=== PATIENT | male | born 1985 | race Hispanic/Latino ===

== ENCOUNTER 2019-07-05 23:05 | Emergency (ER) | payer OTHER ==
[~2019-07-05] VITALS: Ht 170.2 cm; Wt 99.8 kg
[2019-07-05] MEDS ORDERED: ALBUTEROL/IPRATROPIUM 3 ML NEB NEB ONE (23:30)
[2019-07-05] MEDS ORDERED: METHYLPREDNISOLONE SOD SUCC 125 MG/2ML VIAL IV ONE (23:45)
[2019-07-06 00:02] LABS: BASOPHILS % 0.5 % (0.0-1.0); EOSINOPHILS # (AUTO) 0.2 (0.0-0.4); EOSINOPHILS % 2.2 % (0.0-6.0); HEMATOCRIT 50.4 % (38.2-49.6); HEMOGLOBIN 17.4 g/dL (14.0-18.0); LYMPHOCYTES # (AUTO) 3.3 (1.0-3.2); LYMPHOCYTES % 41.5 % (18.0-39.1); MEAN CORPUSCULAR HEMOGLOBIN 31.4 pg (28-32); MEAN CORPUSCULAR HGB CONC 34.5 g/dL (31-35); MEAN CORPUSCULAR VOLUME 90.8 fL (81-99); MONOCYTES # (AUTO) 0.6 (0.2-0.8); MONOCYTES % 7.2 % (4.4-11.3); NEUTROPHILS # (AUTO) 3.9 (2.1-6.9); NEUTROPHILS % 48.4 % (38.7-80.0); PLATELET COUNT 309 x10e3/uL (140-360); RED BLOOD COUNT 5.55 x10e6/uL (4.3-5.7); RED CELL DISTRIBUTION WIDTH 11.9 % (11.7-14.4)
[2019-07-06 00:20] LABS: ALANINE AMINOTRANSFERASE 63 IU/L (0-55); ALBUMIN 4.2 g/dL (3.5-5.0); ALBUMIN/GLOBULIN RATIO 1.2 (0.8-2.0); ALKALINE PHOSPHATASE 110 IU/L (40-150); ANION GAP 16.6 mmol/L (8-16); BLOOD UREA NITROGEN 16 mg/dL (7-26); BUN/CREATININE RATIO 14 (6-25); CALCIUM 9.5 mg/dL (8.4-10.2); CARBON DIOXIDE 22 mmol/L (22-29); CHLORIDE 104 mmol/L (98-107); CREATINE KINASE 99 IU/L (30-200); CREATININE, SERUM 1.12 mg/dL (0.72-1.25); EST GLOMERULAR FILTRATION RATE > 60 ML/MIN (60-); GLUCOSE 93 mg/dL (74-118); POTASSIUM 3.6 mmol/L (3.5-5.1); SODIUM 139 mmol/L (136-145)
--- NOTE | 2019-07-06 02:03 | Diagnostic Imaging Report ---
EXAM: CT Chest WITH contrast 07/05/2019 11:26 PM INDICATION: ^hemoptysis ^[id number] ^0100 COMPARISON: None TECHNIQUE: Chest was scanned utilizing a multidetector helical scanner from the lung apex through the level of the adrenal glands without administration of IV contrast. Coronal and sagittal reformations were obtained. Routine protocol was performed. IV CONTRAST: 100 mL of Isovue-300 COMPLICATIONS: None RADIATION DOSE: Total DLP: 602.99 mGy*cm Estimated effective dose: (DLP x 0.014 x size factor) mSv CTDIvol has been reviewed. It is below the limits set by the Radiation Protocol Committee (RPC). FINDINGS: LINES/ TUBES: None. LUNGS AND AIRWAYS: The lungs are unremarkable. Airways are normal. PLEURA: The pleural spaces are clear. HEART AND MEDIASTINUM: The thyroid gland is normal. No mediastinal, hilar or axillary lymphadenopathy. The heart is normal in size.. There is no pericardial effusion. UPPER ABDOMEN: Unremarkable. BONES: The visualized bony thorax is within normal limits. SOFT TISSUES: Unremarkable. IMPRESSION: Normal chest CT. Signed by: Dr. Diony Amaya MD on 07/06/2019 1:59 AM
[2019-07-06 02:21] VITALS: BP 138/98
[2019-07-13] MEDS ORDERED: HYDROCHLOROTHIA25 MG PO ×2 (02:46→02:47)
== END 2019-07-06 02:45 | disposition home or self-care (01) ==
LOC: ER 23:05
DX: R05 Cough (principal); J20.9 Acute bronchitis, unspecified
CPT/HCPCS: 36415; 71260; 80053; 82550; 82553; 84484; 85025; 94640; 96374; 99284; J2930

== ENCOUNTER 2021-03-01 23:06 | Emergency (ER) | payer OTHER ==
[~2021-03-01] VITALS: Ht 170.2 cm; Wt 99.8 kg
[~2021-03-01 23:06] MED LIST: HYDROCHLOROTHIA25 MG PO
[2021-03-01] MEDS ORDERED: GUAIFENESIN 600MG/DEXTROMETHORPHAN 30MG TABSR PO STA (23:52)
[2021-03-01] MEDS ORDERED: KETOROLAC TROMETHAMINE 30 MG/ML VIAL IM STA (23:52)
[2021-03-02] MEDS ORDERED: ACETAMINOPHEN 325 MG TAB PO ONE
[2021-03-02] MEDS ORDERED: ONDANSETRON HCL 4 MG ORAL DISINTEGRATING TAB PO ONE
[2021-03-02] MEDS ORDERED: ONDANSETRON ODT4 MG PO (00:09)
== END 2021-03-02 01:05 | disposition home or self-care (01) ==
LOC: ER 23:52
DX: R50.9 Fever, unspecified (principal); R05 Cough; R11.2 Nausea with vomiting, unspecified; U07.1 COVID-19; I10 Essential (primary) hypertension; K21.9 Gastro-esophageal reflux disease without esophagitis
CPT/HCPCS: 99283; J1885; Q0162

== ENCOUNTER 2023-01-30 18:46 | Emergency (ER) | payer OTHER ==
[~2023-01-30] VITALS: Ht 170.2 cm; Wt 99.8 kg
[~2023-01-30 18:46] MED LIST changes: +ONDANSETRON ODT4 MG PO
[2023-01-30] MEDS ORDERED: SODIUM CHLORIDE 0.9% 1000ML 1,000 ML IV ONE (19:00)
[2023-01-30] MEDS ORDERED: CEFTRIAXONE 1 GM VIAL IV SCH (19:00)
[2023-01-30 19:03] LABS: BASOPHILS % 0.2 % (0.0-1.0); EOSINOPHILS # (AUTO) 0.1 (0.0-0.4); EOSINOPHILS % 1.1 % (0.0-6.0); HEMATOCRIT 46.8 % (38.2-49.6); HEMOGLOBIN 16.6 g/dL (14.0-18.0); LYMPHOCYTES # (AUTO) 1.4 (1.0-3.2); LYMPHOCYTES % 15.9 % (18.0-39.1); MEAN CORPUSCULAR HEMOGLOBIN 31.1 pg (28-32); MEAN CORPUSCULAR HGB CONC 35.5 g/dL (31-35); MEAN CORPUSCULAR VOLUME 87.8 fL (81-99); MONOCYTES # (AUTO) 0.7 (0.2-0.8); MONOCYTES % 7.4 % (4.4-11.3); NEUTROPHILS # (AUTO) 6.6 (2.1-6.9); NEUTROPHILS % 75.2 % (38.7-80.0); PLATELET COUNT 237 x10e3/uL (140-360); RED BLOOD COUNT 5.33 x10e6/uL (4.3-5.7); RED CELL DISTRIBUTION WIDTH 12.2 % (11.7-14.4)
[2023-01-30 19:10] LABS: INR 0.98; PROTHROMBIN TIME 13.6 seconds (11.9-14.5)
[2023-01-30 19:11] LABS: PARTIAL THROMBOPLASTIN TIME 29.7 seconds (23.8-35.5)
[2023-01-30 19:18] LABS: ALBUMIN 3.8 g/dL (3.5-5.0); ANION GAP 14.4 mmol/L (8-16); CALCIUM 9.1 mg/dL (8.4-10.2); CREATININE, SERUM 1.1 mg/dL (0.72-1.25); POTASSIUM 3.4 mmol/L (3.5-5.1)
[2023-01-30] MEDS ORDERED: IOPAMIDOL 370 MG/ML 100 ML INFUS..BTL INJ ONE (19:39)
[2023-01-30] MEDS ORDERED: SODIUM CHLORIDE 0.9% 1000ML 1,000 ML IV SCH (21:30)
[2023-01-30] MEDS ORDERED: ONDANSETRON HCL INJ 2MG/ML 2ML 2 MG/ML VIAL IV PRN (21:30)
[2023-01-30 23:27] VITALS: BP 139/85; PULSE 89; RESP 19; TEMP 98.2; O2SAT 98
== END 2023-01-30 22:12 | disposition home or self-care (01) ==
LOC: ER 19:00 → ERHOLD 21:18 → UNDOADMOB 21:18 → ER 22:12
DX: B34.9 Viral infection, unspecified (principal); R00.0 Tachycardia, unspecified; R50.9 Fever, unspecified
CPT/HCPCS: 36415; 71260; 74177; 80053; 85025; 85610; 85730; 93005; 99284; J0696; J7030; Q9967; U0002

== ENCOUNTER 2025-02-03 19:08 | Emergency (ER) | payer BC, OTHER ==
[~2025-02-03] VITALS: Ht 170.2 cm; Wt 111.1 kg
[~2025-02-03 19:08] MED LIST changes: +CEPHALEXIN500 MG PO
[2025-02-03 19:36] LABS: BASOPHILS % 0.1 % (0.0-1.0); EOSINOPHILS % 1.5 % (0.0-6.0); LYMPHOCYTES % 13.7 % (18.0-39.1); MONOCYTES % 7.6 % (4.4-11.3); NEUTROPHILS % 76.7 % (38.7-80.0); RED CELL DISTRIBUTION WIDTH 12.2 % (11.7-14.4)
[2025-02-03] MEDS ORDERED: ACETAMINOPHEN 325 MG TAB PO ONE (19:45)
[2025-02-03 20:02] LABS: EST GLOMERULAR FILTRATION RATE 92 ML/MIN (>=60)
[2025-02-03] MEDS: CEFTRIAXONE 2 GM in SODIUM CHLORIDE 0.9% 100 ML IV ONE (20:34)
[2025-02-03] MEDS: ACETAMINOPHEN 325 MG TAB PO ONE (20:34)
[2025-02-03] MEDS: SODIUM CHLORIDE 0.9% 1000ML 1,000 ML IV ONE (20:34)
[2025-02-03 21:13] LABS: CORONAVIRUS COVID-19 AG NEGATIVE (NEGATIVE)
[2025-02-03 22:15] LABS: AMPHETAMINES SCREEN,URINE NEGATIVE (NEGATIVE); CANNABINOIDS SCREEN,URINE NEGATIVE (NEGATIVE); COCAINE SCREEN,URINE NEGATIVE (NEGATIVE); METHADONE SCREEN, URINE NEGATIVE (NEGATIVE); OPIATES SCREEN,URINE NEGATIVE (NEGATIVE)
[2025-02-03 22:16] LABS: LEUKOCYTE ESTERASE ,URINE NEGATIVE (NEGATIVE); PROTEIN,URINE DIPSTICK NEGATIVE (NEGATIVE); URINE UROBILINOGEN 0.2 mg/dL (0.2 - 1)
[2025-02-03 22:51] LABS: EPITHELIAL CELLS,URINE FEW /LPF; WBC,URINE (MAN) 0-5 /HPF (0-5)
[2025-02-03 23:00] VITALS: PULSE 98; RESP 23; TEMP 98.9
[2025-02-03 23:19] VITALS: BP 150/107; PULSE 98; RESP 23; TEMP 98.6; O2SAT 97
== END 2025-02-03 23:13 | disposition home or self-care (01) ==
LOC: ER 19:35
DX: B34.9 Viral infection, unspecified (principal); R50.9 Fever, unspecified; I10 Essential (primary) hypertension; K21.9 Gastro-esophageal reflux disease without esophagitis; Z87.891 Personal history of nicotine dependence
CPT/HCPCS: 36415; 71045; 80053; 80307; 81001; 82550; 83518; 83605; 83880; 84484; 85025; 87040; 87070; 87086; 93005; 99284; J0696; J7030; J7050